=== PATIENT | female | born 1960 | race Caucasian/White ===

== ENCOUNTER 2017-04-20 13:41 | Emergency (ER) | payer OTHER, SELFPAY ==
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
== END 2017-04-20 17:04 | disposition home or self-care (01) ==
LOC: ERS 13:41
DX: M51.16 Intervertebral disc disorders with radiculopathy, lumbar region (principal); M48.061 Spinal stenosis, lumbar region without neurogenic claudication; I10 Essential (primary) hypertension; M79.7 Fibromyalgia; F32.9 Major depressive disorder, single episode, unspecified; Z79.899 Other long term (current) drug therapy; V89.2XXA Person injured in unspecified motor-vehicle accident, traffic, initial encounter
CPT/HCPCS: 72125; 72128; 72131

== ENCOUNTER 2017-06-04 13:04 | Emergency (ER) | payer BC, OTHER, SELFPAY ==
[2017-06-04] MEDS ORDERED: Dexamethasone 10 MG/ML VIAL ONE (13:24)
== END 2017-06-04 13:45 | disposition home or self-care (01) ==
LOC: ERS 13:04
DX: M54.6 Pain in thoracic spine (principal); I10 Essential (primary) hypertension; F32.9 Major depressive disorder, single episode, unspecified; Z79.899 Other long term (current) drug therapy
CPT/HCPCS: 96372; J1100

== ENCOUNTER 2017-07-16 12:33 | Outpatient (CLI) | payer BC ==
--- NOTE | 2017-07-16 14:26 | RAD ---
CERVICAL SPINE 3 VIEWS: HISTORY: Neck pain with arm radiculopathy. Prior surgery. FINDINGS: Anterior fixation plate and screws are in place at the C5-6 level without perihardware lucency. Inte rbody growth over the disk space. No acute fracture, dislocation, or aggressive osseous erosions. D isk space narrowing at the C4-5 level. No abnormal translational motion upon flexion or extension. IMPRESSION: Degenerative and postoperative changes cervical spine. No acute osseous abnormalities are demonstrat ed. POS: [facility]
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
== END 2017-07-16 12:34 | disposition home or self-care (01) ==
LOC: TBSIIMAG 12:33
PROVIDERS: ATTEND Neurological Surgery
DX: M47.22 Other spondylosis with radiculopathy, cervical region (principal); M47.26 Other spondylosis with radiculopathy, lumbar region; M48.061 Spinal stenosis, lumbar region without neurogenic claudication; M48.02 Spinal stenosis, cervical region; M99.81 Other biomechanical lesions of cervical region; K83.8 Other specified diseases of biliary tract; Z98.890 Other specified postprocedural states
CPT/HCPCS: 72040; 72100; 72141; 72148

== ENCOUNTER 2017-09-03 10:52 | Inpatient (IN) | payer BC ==
--- NOTE | 2017-09-03 12:30 | RAD ---
CERVICAL SPINE AP AND LATERAL STANDARD: Date: 09/03/17 HISTORY: Neck pain. COMPARISON: Radiograph dated 07/16/17. FINDINGS: There is ACDF hardware at C5-C6 with facetectomy changes. No hardware complication. Moderate narrowin g at C3-4 and C4-5. No listhesis. Visualized ribs are unremarkable. IMPRESSION: Unchanged examination of the cervical spine without hardware complication. POS: [facility]
[2017-09-03 14:08] LABS: #Basophils 0.1 thou/uL (0.0-0.2); #Eosinphils 0.5 thou/uL (0.0-0.7); #Lymphocytes 2.3 thou/uL (1.20-3.40); #Monocytes 0.4 thou/uL (0.11-0.59); #Neutrophils 3.7 thou/uL (1.40-6.50); %Basophils 1.1 % (0.0-1.0); %Eosinophils 6.7 % (0.0-10.0); %Lymphocytes 32.8 % (21.0-51.0); %Monocytes 5.9 % (0.0-10.0); %Neutrophils 53.5 % (42.0-75.0); Hemoglobin 11.4 g/dL (12.0-16.0); Mean Corpuscular HGB CONC 34.8 g/dL (32.0-36.0); Mean Corpuscular Hemoglobin 36.1 pg (27.0-31.0); Mean Platelet Volume 6.4 fL (7.4-10.4); Platelet Count 255 thou/uL (130-400); RBC Distribution Width 13.3 % (11.5-14.5); Red Blood Cell (RBC) Count 3.15 mill/uL (4.20-5.40); White Blood Cell (WBC) Count 6.9 thou/uL (4.8-10.8)
[2017-09-03 14:14] LABS: PTT 29.6 SEC (22.9-36.1); Prothrombin Time 13.5 SEC (12.0-14.7)
[2017-09-03 14:33] LABS: ALT (SGPT) 14 U/L (8-55); AST (SGOT) 18 U/L (5-34); Alkaline Phosphatase 99 U/L (40-150); Anion Gap 13 mmol/L (10-20); BUN (Urea Nitrogen) 6 mg/dL (9.8-20.1); Bilirubin, Total 0.2 mg/dL (0.2-1.2); CK (CPK) 69 U/L (29-168); Calc. Creatinine Clearance 0 mL/min (70-130); Calcium 8.7 mg/dL (7.8-10.44); Carbon Dioxide 20 mmol/L (22-29); Chloride 107 mmol/L (98-107); Estimated GFR-MDRD 87; Glucose 90 mg/dL (70-105); Lipase 12 U/L (8-78); Potassium 4.1 mmol/L (3.5-5.1); Sodium 136 mmol/L (136-145)
[2017-09-03 14:34] LABS: CKMB 1.4 ng/mL (0-6.6); Troponin I Less than 0.010 ng/mL (< 0.028)
--- NOTE | 2017-09-03 14:44 | RAD ---
RADIOGRAPH CHEST 1 VIEW: Date: 09/03/17 HISTORY: 57-year-old female for preoperative clearance. FINDINGS: There are no air space densities, pulmonary edema, pneumothorax, or cardiomegaly. The lateral costop hrenic angles are sharp. There is partial visualization of ACDF hardware in the lower cervical spine. IMPRESSION: No acute cardiopulmonary findings. saira [] POS: [facility]
[2017-09-03] MEDS ORDERED: Fentanyl 100 MCG/2 ML VIAL ONE (15:09)
[2017-09-03] MEDS ORDERED: Lorazepam 2 MG/ML VIAL ONE (15:09)
[2017-09-03] MEDS ORDERED: HYDROcodone/Acetaminophen 10/325 mg Tablet ONE (20:11)
[2017-09-03] MEDS ORDERED: Acetaminophen 325 MG TAB PO PRN (20:48)
[2017-09-03] MEDS ORDERED: Acetaminophen 650 MG Suppository PR PRN (20:48)
[2017-09-03] MEDS ORDERED: tiZANidine HCl 4 MG TAB PO PRN (20:48)
[2017-09-03] MEDS ORDERED: HYDROcodone/Acetaminophen 10/325 mg Tablet PO PRN (20:48)
[2017-09-03] MEDS ORDERED: Promethazine HCl 12.5 MG SUPP PR PRN (20:48)
[2017-09-03] MEDS ORDERED: Ondansetron HCl/PF 4 MG/2 ML Vial IVP PRN (20:48)
[2017-09-03] MEDS ORDERED: Acetaminophen/Codeine 30-300mg Tablet PO PRN (20:48)
[2017-09-03] MEDS ORDERED: Fleet Enema 133 ML BOT PR PRN (20:48)
[2017-09-03] MEDS ORDERED: diphenhydrAMINE 50 MG/ML VIAL IVP PRN (20:48)
[2017-09-03] MEDS ORDERED: Promethazine 25 MG TAB PO PRN (20:48)
[2017-09-03] MEDS ORDERED: Bisacodyl 10 MG SUPP PR PRN (20:48)
[2017-09-03] MEDS ORDERED: Milk Of Magnesia 30 ML UDCUP PO PRN (20:48)
[2017-09-03] MEDS ORDERED: Promethazine HCl 25 MG/ML VIAL IM PRN (20:48)
[2017-09-03] MEDS ORDERED: diphenhydrAMINE 25 MG CAP PO PRN (20:48)
[2017-09-03] MEDS ORDERED: traMADol HCl 50 MG TAB PO PRN (20:48)
[2017-09-03] MEDS ORDERED: Mag-Al 1200 mg/1200 mg/30 ML UDCUP PO PRN (20:48)
[2017-09-03] MEDS: Sodium Chloride 0.9% 1,000 ML IV SCH (22:06)
[2017-09-03] MEDS: Acetaminophen/Codeine 30-300mg Tablet PO PRN (22:19)
[2017-09-03 23:31] VITALS: BMI 23.1
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
[2017-09-04] MEDS: HYDROcodone/Acetaminophen 10/325 mg Tablet PO PRN (03:33)
[2017-09-04] MEDS ORDERED: Propranolol 40 MG TAB PO SCH (07:15)
[2017-09-04] MEDS ORDERED: Zolpidem Tartrate 5 MG TAB PO PRN (09:24)
[2017-09-04] MEDS ORDERED: Prochlorperazine 10 MG/2 ML VIAL IM PRN (09:24)
[2017-09-04] MEDS ORDERED: Morphine 4 MG/ML Carpuject SLOW IVP PRN (09:25)
--- NOTE | 2017-09-04 09:27 | PRG ---
DATE OF SERVICE: 09/04/2017 NEUROSURGERY NOTE I personally interviewed and examined the patient and agree with documentation of Mame Enamorado PA-C dated 09/04/2017. SUBJECTIVE: Briefly, Ms. Stephanie Payan is well known to our neurosurgery clinic. She had an ACDF in the past. She has been evaluated and we are planning treatment for her cervical spine instability in combination with worsening myelopathy above the level of her previous fusion. In fact, the C3-C4 and C4-C5 segments look unstable in flexion and extension views. In C4-C5, the stenosis is a bit mo re severe than at C3-C4 and a combination of stenosis and instability is affecting her spinal cord fu nction. Her manifestations include hand numbness, finger incoordination and worsening balance. Recently, her insurance company denied surgical intervention and suggested chiropractic manipulation for an unstable spine. I found that obscured. We are in the appeal process, but she has had some de terioration that caused her to come to the emergency department. The reason for this admission, per the patient, there is worsening balance and feeling of decreased safety at home. Her headaches are w orse, her neck pain is worse, her numbness in her hand is worse, but the thing that brought her to [facility] emergency department was her fear of falling. When she was brought to the emergency department include swelling in the feet, she was told by one of the medical doctors yesterday that her chest x-ray and her EKG suggested some degree of effusion nettie und the heart. When I examined Ms. Payan this morning, I do not find that the intrinsic muscles of the hands are sli ghtly weaker than it had been before. I did not have her to perform tandem gait as she is apprehensi ve to do so. I reviewed all her previous imaging and the surgical plan is what we mentioned in our office. Before surgical intervention, we would like to make sure she is safe from a cardiac standpoint. I tillman ve preoperative clearance done as soon as possible, so that we can get her on the schedule. During t his admission, we are planning an ACDF at C3-C4 and C4-C5, removal of her C5-C6 plate and placement o f a 3-level plate. This would give her a better chance of protecting the spinal cord function in the future and prevent deterioration. Once she is safe from a cardiac standpoint, we will get it done.
[2017-09-04] MEDS: Morphine 4 MG/ML VIAL SLOW IVP PRN ×3 (10:13→15:18)
[2017-09-04] MEDS: Sodium Chloride 0.9% 1,000 ML IV SCH (11:19)
[2017-09-04] MEDS ORDERED: CEFAZOLIN/Water 2 GM/20 ML SYRINGE ONE (18:30)
[2017-09-04] MEDS ORDERED: Thrombin 5000 UNITS/5 ML VIAL ONE (18:56)
[2017-09-04] MEDS ORDERED: Sodium Chloride 0.9% 10 ML ONE (18:56)
[2017-09-04] MEDS ORDERED: Fentanyl 100 MCG/2 ML VIAL ONE ×4 (19:06→23:25)
[2017-09-04] MEDS ORDERED: Midazolam HCl 2 mg/2 ml Vial ONE (19:06)
[2017-09-04] MEDS ORDERED: Phenylephrine HCL 10 MG/ML VIAL ONE (19:06)
[2017-09-04] MEDS ORDERED: HYDROmorphone 0.5 MG/0.5 ML SYRINGE ONE (19:46)
[2017-09-04] MEDS ORDERED: Rocuronium Bromide 50 MG/5 ML VIAL ONE (21:53)
[2017-09-04] MEDS: Propranolol 40 MG TAB PO SCH (22:43)
[2017-09-04] MEDS ORDERED: Promethazine HCl 25 MG/ML VIAL SLOW IVP PRN (23:08)
[2017-09-04] MEDS ORDERED: Ondansetron HCl/PF 4 MG/2 ML Vial IVP PRN (23:08)
[2017-09-04] MEDS ORDERED: Ketorolac Tromethamine 30 MG/ML VIAL IVP PRN (23:08)
[2017-09-04] MEDS ORDERED: Promethazine HCl 25 MG/ML VIAL IM PRN (23:08)
[2017-09-05] MEDS: Sodium Chloride 0.9% 1,000 ML IV SCH (00:11)
[2017-09-05] MEDS: Morphine 4 MG/ML VIAL SLOW IVP PRN (02:16)
[2017-09-05 04:13] VITALS: TEMP 98.2
--- NOTE | 2017-09-05 05:53 | OP ---
DATE OF SURGERY: 09/04/2017 SURGEON: Lan Treviño M.D. DRIVER EDUCATION INSTRUCTOR: Mame Enamorado PA-C PREOPERATIVE INDICATION: Prevent further neurological deterioration. 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 OPERATIVE PROCEDURE: Reopening cervical incision with neck dissection, removal of anterior cervical plate at C5-C6, anterior cervical diskectomy, intervertebral arthrodesis, placement of intervertebral biomechanical device and biomechanical device at C3-C4, C4-C5, anterior cervical plating at C3-C4, C 4-C5, C5-C6, local morselized autograft, morselized allograft, operating microscope. PREOPERATIVE MEDICATION: Ancef 2 grams IV. DRAIN NUMBER: Zero. DRAIN TYPE: None. OPERATIVE DICTATION: The patient was brought to the operating room. General endotracheal anesthesia was induced keeping the neck in normal anatomic alignment. Head was put carefully positioned in a g el-filled donut shaped head rest. A lateral fluoro radiograph confirmed that her previous incision w ould give us access from C3-C6 segments of the cervical spine. Right side of the neck was sterilely prepped and draped. We opened her previous incision and extended laterally. We controlled bleeding with bipolar cautery. We dissected sharply to the platysma. We dissected under the platysma and cut this muscle in line with our incision. We then continued our dissection through scar tissue medial to the sternocleidomastoid and lateral to the trachea and esophagus. We arrived carefully at the pre vertebral space and visualized the anterior cervical plate. We elevated the longus colli muscles off the anterior surface of C3, C4, C5, and C6. We removed the screws and the plate from C5 and C6 and controlled bleeding. Small pledgets of Gelfoam in the holes left behind. We then placed a self-paul ining retractor under the longus colli muscles at C4. We placed distraction pins at C3 and C5 and di stracted across the intervening two interspaces. We removed anterior osteophytes with curettes and r ongeurs, we removed disk material with curettes and as we approached the posterior longitudinal ligam ent and brought the operating microscope in the field. Under microscopic magnification using microsurgical techniques, we removed the remainder of the inter vertebral disk. We accessed the ventral epidural space with a micro curette and used Kerrison rongeu rs to remove posterior osteophytes at C3-C4 and C4-C5 across the entire interspace until we decompres sed from one neural foramen all the way to the other. There was no further compression of the dura. This decompression was complete at C3-C4 and C4-C5 and then we turned our attention to arthrodesis. Using angled curettes, we prepared the endplates for grafting, we measured the height of the intersp ronna to 6 mm with a bone rasp and we brought 6 mm PEEK intervertebral grafts into the field. The ante rior and posterior osteophytes were cleaned of soft tissue attachments, morselized and added to demin eralize bone matrix as our fusion substrate. This substrate was placed in the PEEK grafts and the gr afts were advanced into the respective interspaces under radiographic guidance to the appropriate dep th. We then removed the distraction pins and took the operating microscope out of the field. A 48 mm anterior cervical plate was brought into the field. We could use two of the four holes at C5 and C6 and we placed rescue screws on the holes. We drilled engine pilot holes at C3 and C4 as well as fit through the holes at C5 and C6. We affixed the plate using 14 mm screws. Rescue screws were used a t C5 and C6 with fixed angle rescue screws at C6. A 14 mm variable angle screws were placed at C3 an d C4. We engaged the locking mechanism over each of the 8 screws. We irrigated copiously with bacit racin irrigation. Hemostasis was excellent. We closed the wound in anatomic layers. We applied a s terile dressing. This was a clean case and no contamination.
[2017-09-05] MEDS: HYDROcodone/Acetaminophen 10/325 mg Tablet PO PRN ×2 (06:45→10:41)
[2017-09-05 07:55] VITALS: BP 111/74
--- NOTE | 2017-09-05 08:51 | PRG ---
DATE OF SERVICE: 09/05/2017 SUBJECTIVE: Ms. Payan is 1 day out from removal of C5-C6 plate and an ACDF at C3-C4 and C4-C5 with n ew plating from C3-C6. Ms. Payan tells me her neck pain is better. Her headache is better. The tejeda ds are less numb and tingling. She feels her balance is better when she walks to the bathroom. She is very pleased with the results of the operation. I am seeing Ms. Payan this morning. Her vital si gns are stable. She has good phonation. Vocal cords seem to be working well. She is swallowing wel l without aspiration. Ms. Payan seems safe for her activities of daily living that she will be ready for discharge today. Followup arrangements will be made.
[2017-09-05] MEDS: Propranolol 40 MG TAB PO SCH (08:59)
[2017-09-05] MEDS: Acetaminophen/Codeine 30-300mg Tablet PO PRN (09:00)
== END 2017-09-05 11:06 | disposition home or self-care (01) | DRG 473 ==
LOC: ERS 10:52 → SJJU 20:24
PROVIDERS: ADMIT Neurological Surgery; ATTEND Neurological Surgery
PROC: 0RP10JZ Removal of Synthetic Substitute from Cervical Vertebral Joint, Open Approach (ICD-10-PCS; principal; 2017-09-04)
PROC: 0RG2070 Fusion of 2 or more Cervical Vertebral Joints with Autologous Tissue Substitute, Anterior Approach, Anterior Column, Open Approach (ICD-10-PCS; 2017-09-04)
PROC: 0RB30ZZ Excision of Cervical Vertebral Disc, Open Approach (ICD-10-PCS; 2017-09-04)
PROC: 0RG20J0 Fusion of 2 or more Cervical Vertebral Joints with Synthetic Substitute, Anterior Approach, Anterior Column, Open Approach (ICD-10-PCS; 2017-09-04)
DX: M47.12 Other spondylosis with myelopathy, cervical region (principal); M48.02 Spinal stenosis, cervical region; I10 Essential (primary) hypertension; M79.7 Fibromyalgia; F17.210 Nicotine dependence, cigarettes, uncomplicated
CPT/HCPCS: 36415; 71045; 72040; 76001; 80053; 82550; 82553; 83690; 83880; 84484; 85025; 85610; 85652; 85730; 86140; 93005; 96374; 96375; A4216; J1170; J2060; J2250; J2270; J2370; J3010; J3490

== ENCOUNTER 2017-11-11 13:01 | Outpatient (CLI) | payer BC ==
--- NOTE | 2017-11-11 16:50 | RAD ---
CERVICAL SPINE RADIOGRAPHS 3 VIEWS: DATE: 11/11/2017. PROVIDED CLINICAL HISTORY: Right arm numbness and headaches. FINDINGS: Comparison 09/03/2017. Interval extension of ACDF to span C3 through C6. No evidence for hardware lo osening or migration. No significant prevertebral soft tissue swelling apparent. Cervical alignment appears normal. Vertebral body heights appear preserved. Visualized lung apices appear clear. IMPRESSION: Interval postoperative change. POS: [facility]
== END 2017-11-11 13:02 | disposition home or self-care (01) ==
LOC: TBSIIMAG 13:01
PROVIDERS: ATTEND Neurological Surgery
DX: M47.12 Other spondylosis with myelopathy, cervical region (principal); M53.2X2 Spinal instabilities, cervical region; Z98.1 Arthrodesis status
CPT/HCPCS: 72040